=== PATIENT | male | born 1995 | race Caucasian/White ===

== ENCOUNTER 2021-03-17 02:27 | Emergency (ER) | payer OTHER ==
[~2021-03-17] VITALS: Ht 185.4 cm; Wt 103.0 kg
[~2021-03-17 02:27] MED LIST: ANAPROX DS550 MG PO; CEFADROXIL500 M1 PO; CIPRODEX 0.3%-7.5 ML OT; FLAGYL250 MG PO; FLEXERIL5 MG PO; HYDROCODONE BIT1 T11 PO; LIDEX0.05% T; LOMOTIL 0.025 M1 TAB PO; MOTRIN400 MG PO; MOTRIN800 MG PO; PREDNICOT20 MG PO; PREDNISONE20 MG PO; ZITHROMAX Z PA250 MG PO
== END 2021-03-17 05:53 | disposition home or self-care (01) ==
LOC: ED 02:27
DX: R51.9 Headache, unspecified (principal); R11.2 Nausea with vomiting, unspecified

== ENCOUNTER 2021-10-11 20:31 | Emergency (ER) | payer OTHER ==
[2021-10-11] MEDS ORDERED: Motrin,Rufen800 MG PO (23:18)
== END 2021-10-11 23:19 | disposition home or self-care (01) ==
LOC: ED 20:31
DX: S83.92XA Sprain of unspecified site of left knee, initial encounter (principal); W11.XXXA Fall on and from ladder, initial encounter; Y93.89 Activity, other specified; Y92.89 Other specified places as the place of occurrence of the external cause; Y99.8 Other external cause status

== ENCOUNTER → 2023-07-13 | Outpatient (CLI) | payer OTHER ==
[~2023-07-13] MED LIST changes: +Motrin,Rufen800 MG PO
== END | disposition home or self-care (01) ==
LOC: US 01:40
PROVIDERS: ATTEND Family Medicine
DX: K76.0 Fatty (change of) liver, not elsewhere classified (principal); R79.89 Other specified abnormal findings of blood chemistry